=== PATIENT | male | born 1980 | race Caucasian/White ===

== ENCOUNTER 2018-07-30 13:55 | Emergency (ER) | payer MEDICARE, OTHER ==
[2018-07-30] MEDS ORDERED: KETOROLAC TROMETHAMINE 30MG/ML ONE (14:29)
[2018-07-30 14:33] LABS: BASOPHILS % (AUTO) 0.5 % (0.0-5.0); EOSINOPHILS % (AUTO) 0.8 % (0.0-8.0); HEMATOCRIT 45.6 % (42-54); LYMPHOCYTES % (AUTO) 19.8 % (21.0-51.0); MEAN CORPUSCULAR HEMOGLOBIN 31.6 pg (27.0-33.0); MEAN CORPUSCULAR HGB CONC 34.1 g/dL (32.0-36.0); MEAN CORPUSCULAR VOLUME 92.9 fL (79-99); MONOCYTES % (AUTO) 5.9 % (3.0-13.0); NUCLEATED RED BLOOD CELLS 0.1 % (0.0-0.19); PLATELET COUNT (AUTO) 152 K/uL (130-400); RED BLOOD CELL COUNT(AUTO) 4.91 MIL/uL (4.50-6.20); RED CELL DISTRIBUTION WIDTH 13.2 % (11.0-15.5); WHITE BLOOD COUNT (AUTO) 8.6 K/uL (4.8-10.8)
[2018-07-30 14:46] LABS: CREATININE 1.1 mg/dL (0.5-1.5); POTASSIUM 4.3 mmol/L (3.5-5.1)
[2018-07-30 14:50] LABS: ALBUMIN 3.2 g/dL (3.5-5.0); BILIRUBIN,DIRECT 0.1 mg/dL (0.0-0.3); BILIRUBIN,TOTAL 0.5 mg/dL (0.2-1.0)
[2018-07-30 15:05] LABS: APPEARANCE,URINE Clear (CLEAR); BILIRUBIN,URINE Negative (NEGATIVE); COLOR,URINE Yellow (YELLOW); GLUCOSE, URINE (UA) Negative (NEGATIVE); KETONES,URINE Negative (NEGATIVE); LEUKOCYTE ESTERASE ,URINE Trace (NEGATIVE); NITRATE,URINE Negative (NEGATIVE); OCCULT BLOOD,URINE Negative (NEGATIVE); PH,URINE 6.5 (5.0-8.0); PROTEIN,URINE Negative (NEGATIVE)
[2018-07-30 15:14] LABS: AMPHET/METH SCREEN,URINE NEGATIVE (NEGATIVE); BARBITURATE SCREEN, URINE NEGATIVE (NEGATIVE); BENZODIAZEPINES SCREEN,URINE NEGATIVE (NEGATIVE); CANNABINOID SCREEN,URINE POSITIVE (NEGATIVE); COCAINE SCREEN,URINE NEGATIVE (NEGATIVE); OPIATE SCREEN,URINE NEGATIVE (NEGATIVE); PHENCYCLIDINE SCREEN,URINE NEGATIVE (NEGATIVE)
[2018-07-30 15:16] LABS: BACTERIA,URINE Few /HPF (None Seen); RBC,URINE 0-1 /HPF (0-1)
[2018-07-30] MEDS ORDERED: ACETAMINOPHEN 325 MG TAB ONE (15:23)
== END 2018-07-30 16:20 | disposition home or self-care (01) ==
LOC: EDH 13:55
DX: R07.89 Other chest pain (principal); F17.290 Nicotine dependence, other tobacco product, uncomplicated; F12.90 Cannabis use, unspecified, uncomplicated; F41.9 Anxiety disorder, unspecified
CPT/HCPCS: 36415; 71046; 80048; 80076; 80305; 81001; 82550; 84484; 85025; 93005; 96374; 99285; J1885

== ENCOUNTER 2024-08-30 16:20 | Emergency (ER) | payer SELFPAY ==
[~2024-08-30] VITALS: Ht 188 cm; Wt 74.8 kg
--- NOTE | 2024-08-30 16:29 | ERN ---
General Stated Complaint: WIRE STUCK IN LT LEG Time Seen by MD: 16:20 History of Present Illness Initial Comments 44-year-old male presents to the ED for evaluation of metal piece stuck to left lower extremity onset HOSPICE PHYSICIAN. 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 Home Meds Active Scripts Cephalexin Monohydrate (Keflex) 500 Mg Cap, 1 CAP PO TID for 10 Days, #30 CAP 0 Refills Prov:DONAVAN FELTON MD 08/30/24 ROS Dictation Constitutional: Negative for fever,chills, and weight loss Eyes: Negative for injury, pain,redness, and discharge ENT: Negative for injury,pain or swelling Cardiovascular: Negative for chest pain, palpitations, and edema Respiratory: Negative for shortness of breath, cough, and wheezing, Abdomen/GI: Negative for abdominal pain, nausea, vomiting, diarrhea, and constipation Back: Negative for injury and pain : Negative for injury, bleeding and discharge MS/Extremity: Left lower extremity foreign body Negative for injury and deformity Skin: Negative for rash, and discoloration Neuro: Negative for headache, weakness, numbness, tingling, and seizure Psych: Negative for suicide ideation, homicidal ideation, and hallucinations Physical Exam Physical Exam Dictation General: awake, alert, NAD Head/Face: Normocephalic, atraumatic Eyes: PERRL, EOMI, vision at baseline ENT: oral cavity clear, TMs clear, no signs of infection Neck: Trachea midline, supple, no nuchal rigidity Cardiovascular: RRR, normal S1/S2, No MRGs, no JVD Respiratory: CTAB, no respiratory distress, No rales or wheezes Abdomen: Soft, non-tender, non-distended, normal bowel sounds, no guarding or rebound. Skin: Warm, dry, normal turgor, no rash MS/Extremity: Pulses equal, no cyanosis, neurovascular intact, FROM, left lateral lower extremity with metal foreign body Neuro: COAx4, GCS 15, strength 5/5, CN 2-12 intact, normal cerebellar exam, normal gait, Psych: Normal behavior, mood, and affect normal MDM MDM: Differential diagnosis: Foreign body removal, lower extremity pain Previous outside records reviewed: Old ER visits. Need for hospitalization: Patient does not meet criteria for hospitalization. Need for emergency major/minor surgery: No Patient's prior external medical records from other ER visits were reviewed by me as indicated. Prior testing and results from previous visits were reviewed. Prior tests were taken into account with medical decision making and resource utilization, independent historian/historians were used to obtain complete medical history. I independently interpreted the test that were performed, results were reviewed by me and considered findings on radiology if ordered. Medical management and examination interpretation discussions were had by me with other qualified healthcare professionals as indicated for the patient's care. ED Course Orders Procedure Category Date Status Time Diph,Pertuss(Acell),Tet PHA 08/30/24 Complete Vac/Pf (Tdap) 16:30 Cefazolin Sodium 1 Gm PHA 08/30/24 Complete Vial (Ancef 1 Gm V 16:26 Water For PHA 08/30/24 Complete Injection,Sterile 17:12 Tibia/Fibula 2vws Lt RAD 08/30/24 Taken 16:26 Lidocaine Hcl 1% 20ml PHA 08/30/24 Complete Vial (Lidocaine Hc 17:37 Current Medications Medications (Trade) Dose Ordered Sig/Jose Route PRN Reason Start Time Stop Time Status Last Admin Dose Admin Cefazolin Sodium (ANCEF 1 gm vial) 1 gm STAT STAT IM 08/30/24 16:26 08/30/24 16:28 DC 08/30/24 17:14 Diphtheria/ Tetanus/Acell Pertussis (Tdap) 0.5 ml ONCE ONCE IM 08/30/24 16:30 08/30/24 16:31 DC 08/30/24 17:17 Lidocaine HCl (Lidocaine HCl 1% 20ml Vial) 20 ml STK-MED ONCE .ROUTE 08/30/24 17:37 08/30/24 17:37 DC Sterile Water (Sterile Water, Injection) 10 ml STK-MED ONCE .ROUTE 08/30/24 17:12 08/30/24 17:15 DC 08/30/24 17:17 Vital Signs Date Time Temp Pulse Resp B/P (MAP) Pulse Ox O2 Delivery O2 Flow Rate FiO2 08/30/24 16:35 98.1 85 20 107/73 99 0 Procedure Dictation Foreign body removal from left lower extremity. Performed by Dr. Felton, verbal consent obtained from patient. Cleaned area with iodine. Local anesthetic: 1% lidocaine, 2 mLs. Complete removal of foreign body. Patient tolerated procedure well. Total procedure time 6 minutes. DX & DISP Disposition: Discharge Departure Impression: Primary Impression: Foreign body removal Additional Impression: Foreign body in lower extremity Condition: Stable Scripts Cephalexin Monohydrate (Keflex) 500 Mg Cap 1 CAP PO TID for 10 Days, #30 CAP 0 Refills Prov: DONAVAN FELTON MD 08/30/24 Additional Instructions: FOLLOW-UP WITH PRIMARY CARE PROVIDER IN 1 TO 2 DAYS. TAKE MEDICATIONS DIRECTED HERE IN THE EMERGENCY ROOM. OKAY TO CONTINUE HOME MEDICATIONS UNLESS OTHERWISE DISCUSSED DURING YOUR VISIT IN THE EMERGENCY ROOM TODAY. RETURN TO YOUR NEAREST EMERGENCY ROOM IF SYMPTOMS WORSEN OR IF THERE IS NO IMPROVEMENT. CALL 911 IF YOU NEED IMMEDIATE ASSISTANCE. TAKE TYLENOL [id number] NEEDED AND IF NO CONTRAINDICATIONS ARE PRESENT. INCREASE ORAL HYDRATION. A WOUND CULTURE OR URINE CULTURE WAS ORDERED HERE IN THE EMERGENCY ROOM DEPARTMENT PLEASE FOLLOW-UP WITH PRIMARY CARE PROVIDER AND ADVISE THEM TO GET REPEAT PORTS FROM OUR FACILITY. IF YOU HAD ANY JOHANNY WRAP/SPLINTS THAT WERE APPLIED HERE, PLEASE DO NOT REMOVE THEM UNTIL YOU SEE YOUR PRIMARY CARE OR SPECIALTY. REFERRALS: Referrals: NONE (PCP) VIJAY JIMENES MD Time of Disposition: 17:42 I have reviewed, & agreed with my scribe's, documentation. (Entered by Shirley Raines, acting as a scribe for Dr. Felton) I personally scribed for DONAVAN FELTON MD (TARAS) on 08/30/24 at 16:29. Electronically submitted by Shirley Raines ([email or web address]). I personally scribed for DONAVAN FELTON MD (TRAAS) on 08/30/24 at 17:43. Electronically submitted by Shirley Raines ([email or web address]). I personally scribed for DONAVAN FELTON MD (TARAS) on 08/30/24 at 17:47. Electronically submitted by Shirley Raines ([email or web address]). DONAVAN FELTON MD Aug 30, 2024 16:29
[2024-08-30 16:35] VITALS: TEMP 98
[2024-08-30] MEDS: ceFAZolin SODIUM 1 GM VIAL IM STA (17:14)
[2024-08-30] MEDS: DIPH,PERTUSS(ACELL),TET VAC/PF 0.5 ML VIAL IM ONE (17:17)
[2024-08-30] MEDS ORDERED: LIDOCAINE HCL 1% 20 ML VIAL ONE (17:37)
[2024-08-30] MEDS ORDERED: CEPH500B PO (17:44)
[2024-08-30 17:59] VITALS: BP 127/69; PULSE 70; RESP 16; O2SAT 98
--- NOTE | 2024-08-30 18:20 | HMCIMG ---
TIBIA/FIBULA 2VWS LT HISTORY: Foreign body COMPARISON: None TECHNIQUE: 2 images of left tibia and fibula were obtained. FINDINGS: Curvilinear angulated radiopaque foreign body is seen adjacent to the left mid fibula. There is no acute displaced fracture or dislocation. Degenerative changes are seen. IMPRESSION: 1. Findings as described above.
== END 2024-08-30 18:03 | disposition home or self-care (01) ==
LOC: EDH 16:20
DX: S80.852A Superficial foreign body, left lower leg, initial encounter (principal); Z79.899 Other long term (current) drug therapy; X58.XXXA Exposure to other specified factors, initial encounter; Y93.89 Activity, other specified; Y92.89 Other specified places as the place of occurrence of the external cause; Y99.8 Other external cause status
CPT/HCPCS: 99284; 90715; 73590; 96372; 90471; J0690; 96374